=== PATIENT | female | born 1980 | race Caucasian/White ===

== ENCOUNTER → 2017-09-28 | Outpatient (CLI) | payer MEDICAID ==
--- NOTE | 2017-09-28 19:09 | Diagnostic Imaging Report ---
Bilateral diagnostic mammogram with tomography. The current study was also evaluated with a Computer Aided Detection (CAD) system. INDICATION: Lump in the outer aspect of the right breast. COMPARISON: No prior studies are available for comparison. FINDINGS: The breasts are composed of scattered fibroglandular densities. Scattered benign-appearing calcifications are seen. There is no mass, architectural distortion, or suspicious cluster of calcifications. IMPRESSION: No mammographic evidence of malignancy. Ultrasound evaluation pending. ACR BI-RADS Category 0: Incomplete. (Needs additional imaging evaluation). Result letter will be mailed to the patient. Note: At least 10% of breast cancer is not imaged by mammography. Dictated by: Dictated on workstation # [id number]
--- NOTE | 2017-09-28 20:23 | Diagnostic Imaging Report ---
Right breast ultrasound. INDICATION: Palpable lump in the outer aspect of the right breast. FINDINGS: At the 9 o'clock zone about 8 cm from the nipple is a palpable area which is scanned with surrounding region and no underlying abnormality seen. IMPRESSION: Negative study. Clinical follow-up of the palpable area is recommended. ACR BI-RADS Category 1: Negative. Dictated by: Dictated on workstation # [id number]
== END ==
LOC: RAD 08:06
PROVIDERS: ATTEND Nurse Practitioner Family
DX: N63.10 Unspecified lump in the right breast, unspecified quadrant (principal)
CPT/HCPCS: 77066